=== PATIENT | male | born 1970 | race Caucasian/White ===

== ENCOUNTER 2017-04-20 11:40 | Emergency (ER) | payer BC ==
[~2017-04-20] VITALS: Ht 172.7 cm; Wt 81.6 kg
[2017-04-20] MEDS ORDERED: SODIUM CHLORIDE 0.9% 1000ML 1,000 ML IV STA (11:52)
[2017-04-20] MEDS ORDERED: ONDANSETRON HCL INJ 2 MG/ML VIAL IV STA (11:52)
[2017-04-20] MEDS ORDERED: KETOROLAC TROMETHAMINE 30 MG/ML VIAL IM STA (11:52)
[2017-04-20 12:24] LABS: BILIRUBIN,URINE NEGATIVE (NEGATIVE); KETONES,URINE NEGATIVE (NEGATIVE); LEUKOCYTE ESTERASE ,URINE NEGATIVE (NEGATIVE); NITRITE,URINE NEGATIVE (NEGATIVE); PROTEIN,URINE DIPSTICK NEGATIVE (NEGATIVE); URINE UROBILINOGEN 0.2 mg/dL (0.2 - 1)
[2017-04-20 12:26] LABS: CLARITY,URINE CLOUDY (CLEAR); COLOR,URINE YELLOW (YELLOW)
--- NOTE | 2017-04-20 12:32 | Diagnostic Imaging Report ---
PROCEDURE: CT ABDOMEN AND PELVIS WITHOUT CONTRAST TECHNIQUE: The abdomen and pelvis were scanned utilizing a multidetector helical scanner from the diaphragm to the lesser trochanter. Oral water was administered. No intravenous contrast per renal stone protocol. Coronal and sagittal multiplanar reformations were obtained. COMPARISON: None. INDICATIONS: CALCULUS OF KIDNEY FINDINGS: ABSENCE OF INTRAVENOUS CONTRAST DECREASES SENSITIVITY FOR DETECTION OF FOCAL LESIONS AND VASCULAR PATHOLOGY. LOWER THORAX: Normal. HEPATOBILIARY: No focal hepatic lesion or biliary ductal dilatation. Gallbladder is unremarkable. SPLEEN: No splenomegaly. PANCREAS: No focal masses or ductal dilatation. ADRENALS: No adrenal nodules. KIDNEYS/URETERS: 6 mm calculus in the proximal right ureter results in mild hydronephrosis and proximal hydroureter with perinephric inflammatory change. No additional renal, ureteral, or bladder calculi with the exception of a punctate nonobstructing left lower pole renal calculus seen on series 3 image 74. No gross renal mass lesion. PELVIC ORGANS/BLADDER: The urinary bladder is unremarkable. Coarse prostatic calcifications. PERITONEUM / RETROPERITONEUM: No ascites. No pneumoperitoneum. LYMPH NODES: No pelvic sidewall, retroperitoneal, or mesenteric lymphadenopathy. VESSELS: Limited evaluation without intravenous contrast. The abdominal aorta is non-aneurysmal. GI TRACT: The large bowel shows no evidence of distention or wall thickening. The descending and sigmoid colon are collapsed and poorly evaluated. The appendix is normal. There is no small bowel dilatation to suggest obstruction. BONES AND SOFT TISSUES: No focal soft tissue abnormality. No osseous destructive lesions. IMPRESSION: 6 mm proximal right ureteral calculus results in mild hydroureteronephrosis and perinephric inflammation. Punctate nonobstructing left lower pole renal calculus. Dictated by: Emir Gonzalez M.D. on 04/20/2017 at 12:41 Electronically approved by: Emir Gonzalez M.D. on 04/20/2017 at 12:41
[2017-04-20 12:33] LABS: BASOPHILS # (AUTO) 0.1 (0.0-0.1); BASOPHILS % 0.7 % (0.0-1.0); EOSINOPHILS # (AUTO) 0.2 (0.0-0.4); EOSINOPHILS % 2.1 % (0.0-6.0); HEMATOCRIT 42.7 % (38.2-49.6); HEMOGLOBIN 14.8 g/dL (14.0-18.0); LYMPHOCYTES # (AUTO) 1.7 (1.0-3.2); LYMPHOCYTES % 16.8 % (18.0-39.1); MEAN CORPUSCULAR HEMOGLOBIN 28.8 pg (28-32); MEAN CORPUSCULAR HGB CONC 34.7 g/dL (31-35); MEAN CORPUSCULAR VOLUME 83.2 fL (81-99); MONOCYTES # (AUTO) 0.6 (0.2-0.8); NEUTROPHILS # (AUTO) 7.5 (2.1-6.9); NEUTROPHILS % 74.1 % (38.7-80.0); PLATELET COUNT 315 x10e3/uL (140-360); RED BLOOD COUNT 5.13 x10e6/uL (4.3-5.7); RED CELL DISTRIBUTION WIDTH 12.5 % (11.7-14.4)
[2017-04-20 12:49] LABS: BACTERIA,URINE RARE /HPF; EPITHELIAL CELLS,URINE RARE /LPF
[2017-04-20 12:54] LABS: ALANINE AMINOTRANSFERASE 103 IU/L (0-55); ALBUMIN 4.4 g/dL (3.5-5.0); ALBUMIN/GLOBULIN RATIO 1.4 (0.8-2.0); ALKALINE PHOSPHATASE 122 IU/L (40-150); BLOOD UREA NITROGEN 15 mg/dL (7-26); BUN/CREATININE RATIO 12 (6-25); CALCIUM 9.9 mg/dL (8.4-10.2); CARBON DIOXIDE 26 mmol/L (22-29); CHLORIDE 103 mmol/L (98-107); CREATININE, SERUM 1.28 mg/dL (0.72-1.25); EST GLOMERULAR FILTRATION RATE > 60 ML/MIN (60-); GLUCOSE 344 mg/dL (74-118); LIPASE 14 U/L (8-78); SODIUM 139 mmol/L (136-145)
[2017-04-20] MEDS ORDERED: ZOFRAN ODT4 MG SL (14:04)
[2017-04-20] MEDS ORDERED: FLOMAX0.4 MG PO (14:05)
[2017-04-20] MEDS ORDERED: TYLENOL WITH C1 EACH PO (14:05)
[2017-04-20] MEDS ORDERED: CIPRO500 MG PO (14:06)
[2017-04-20] MEDS ORDERED: KETOROLAC TROME10 MG PO (14:07)
== END 2017-04-20 14:21 | disposition home or self-care (01) ==
LOC: ER 11:40
DX: R10.31 Right lower quadrant pain (principal); M54.9 Dorsalgia, unspecified; N20.1 Calculus of ureter
CPT/HCPCS: 36415; 74176; 80053; 81001; 83690; 85025; 99284; J1885; J2405; J7030